=== PATIENT | female | born 1960 ===

== ENCOUNTER 2023-05-03 16:09 | Outpatient (REF) | payer BC, SELFPAY ==
[2023-05-03 14:44] LABS: HCT 50.6 % (36.0-46.0); HGB 17.2 g/dL (11.2-15.7); MCV 91 fL (80-95); MPV 9.5 fL (8.0-11.0); Platelet Count 286 10^3/uL (130-400); RBC 5.54 10^6/uL (3.93-5.22); RDW 14.5 % (11.7-14.6); RDW-SD 49.2 fL; WBC 10.45 10^3/uL (4.4-10.8)
[2023-05-03 15:08] LABS: ALT 48 U/L (14-59); AST 30 U/L (15-37); Alkaline Phosphatase 206 U/L (46-116); Anion Gap 5.5 mmol/L (3-11); BUN 27 mg/dL (7-18); Bilirubin, Total 0.5 mg/dL (0.2-1.0); CO2 33.5 mmol/L (21.0-32.0); CREATININE 0.9 mg/dL (0.55-1.02); Calcium 9.9 mg/dL (8.5-10.1); Calculated LDL 110 mg/dL (<100); Chloride 98 mmol/L (98-107); Cholesterol 212 mg/dL (<200); Estimated GFR 73.19 (mL/min/1.73m2); Glucose 115 mg/dL (74-106); HDL Cholesterol 53 mg/dL (40-60); Potassium 3.6 mmol/L (3.5-5.1); Sodium 137 mmol/L (136-145); TSH 1.74 uIU/mL (0.36-3.74); Total Protein 8.4 g/dL (6.4-8.2); Triglyceride 246 mg/dL (<150)
== END 2023-05-03 16:10 | disposition home or self-care (01) ==
LOC: NCHCN 16:09
PROVIDERS: Visit Provider Family Medicine
DX: Z00.00 Encounter for general adult medical examination without abnormal findings (principal); E78.00 Pure hypercholesterolemia, unspecified; I11.9 Hypertensive heart disease without heart failure; K76.0 Fatty (change of) liver, not elsewhere classified; E66.8 Other obesity; Z68.32 Body mass index [BMI] 32.0-32.9, adult
CPT/HCPCS: 80053; 80061; 85027; 84443

== ENCOUNTER 2024-04-18 18:41 | Outpatient (REF) | payer BC, SELFPAY ==
--- OUTSIDE RECORDS SUMMARY | 2024-04-18 18:43 | XMS_ITS | Data Portability ---
Author Organization [facility], [facility] Address [address] [place] [address] Assessment Encounter Date Assessment Date Assessment LastModified by Organization Details LastModified Time 08/30/2023 08/30/2023 The total time devoted to today's encounter, including both the dbhu-hm-qcrg time with the patient and/or family/caregi jorge and sxt-vsge-dt-f kajal time I personally spent is 30 minutes. [email or web address] Not available 08/30/2023 21:17:13 11/22/2023 11/22/2023 The total time devoted to today's encounter, including both the xody-ui-yzjo time with the patient and/or family/caregi jorge and zfq-cfyk-ec-f kajal time I personally spent is 30 minutes. [email or web address] Not available 11/22/2023 11:32:30 04/18/2024 04/18/2024 The total time devoted to today's encounter, including both the dchv-we-tntk time with the patient and/or family/caregi jorge and gvn-odhr-bd-f kajal time I personally spent is 25 minutes in visit, 5 minutes prep, 5 minutes charting; total 35 minutes. Not available 04/18/2024 14:43:39 Plan of Treatment Reminders Order Date Submit Date Provider Last Modified By Organization Details Last Modified Time Details Appointments Follow Up 2023 02:00P M Not available Not available Not available acureset 2023 11:00A M Not available Not available Not available 12 week FU (controll ed meds) 2023 02:00P M Not available Not available Not available Lab hemoglobi n A1C, fingersti ck [email or web address], [address] [place] [address], [id number], 08/30/2023 15:01:34 hemoglobi n A1C, fingersti ck [email or web address], [address] [place] [address], [phone], 11/22/2023 13:13:01 lipid panel, serum [address] [facility] (Registration ), [address] [place] [address] [place], [address], 04/18/2024 16:33:42 drug screen, urine [email or web address], [address] [place] [address], [phone], 04/18/2024 16:33:42 HbA1c (hemoglob in A1c), blood [address] [facility] (Registration ), [address] [place] [address] [place], [address], 04/18/2024 16:33:42 CMP, serum or plasma [address] [facility] (Registration ), [address] [place] [address] [place], [address], 04/18/2024 16:33:42 Referral urologist referral [address] [facility], [address], [address], [place], [address], 04/18/2024 16:32:45 Procedures None recorded. Surgeries None recorded. Imaging LDCT, chest, for lung cancer screening - 6 month F/U LDCT (last imaging done on 03/24/23) 2023 024 [email or web address] [facility], [address], [place], [address], 09/15/2023 09:34:03 Medication Orders dextroamp hetamine- amphetami ne 20 mg tablet 2023 024 [facility] #[id number], [address], [place], [place], [id number], 08/30/2023 21:18:01 dextroamp hetamine- amphetami ne 20 mg tablet 2023 024 [facility] #[id number], [address], [place], [place], [id number], 08/30/2023 21:18:00 dextroamp hetamine- amphetami ne 20 mg tablet 2023 024 [facility] #[id number], [address], [place], [place], [id number], 08/30/2023 21:18:01 atorvasta tin 80 mg tablet 2023 024 [email or web address] [facility] [facility] (Primary), [facility], [place], [address], 11/22/2023 15:47:51 dextroamp hetamine- amphetami ne 20 mg tablet [address] [facility] #[id number], [address], [place], [place], [id number], 11/22/2023 13:29:37 dextroamp hetamine- amphetami ne 20 mg tablet [address] [facility] #[id number], [address], [place], [place], [id number], 11/22/2023 13:29:38 dextroamp hetamine- amphetami ne 20 mg tablet 2023 [facility] #[id number], [address], [place], [place], [id number], 11/22/2023 11:35:31 amlodipin e 10 mg tablet 2023 024 [email or web address] [employer] [facility] (Primary), [place], [address], 11/22/2023 15:47:51 triamtere ne 75 mg-hydroc hlorothia zide 50 mg tablet 2023 [email or web address] [employer] [facility] (Primary), [place], [address], 11/22/2023 15:47:51 omeprazol e 20 mg capsule,d elayed release 2023 024 [email or web address] [employer] (Primary), [place], [address], 11/22/2023 15:47:51 Vyvanse 20 mg capsule 2023 [email or web address] [employer] (Primary), [place], [address], 04/18/2024 16:32:45 omeprazol e 20 mg capsule,d elayed release 2023 024 [email or web address] [facility] (Primary), [place], [address], 04/18/2024 16:32:45 nicotine 21 mg/24 hr daily transderm al patch 2023 [email or web address] [employer] (Primary), [place], [address], 04/18/2024 16:32:45 Patient TargetsNo targets recorded. Patient Instructions Encounter Date Encounter Id Patient Instructions Last Modified By Organization Details Last Modified Time 11/22/2023 [id number] It was nice to see you! I recommend getting 30+ mins of exercise most days, maximizing fruit and vegetable intake, eating healthy fats, and limiting carbohydrates, especially simple carbs (soda, pasta, bread, cookies, cereals). Consider support groups along with Accu reset for smoking cessation. Follow-up in 3 months or sooner if needed. Take Care! [email or web address] Not available 11/22/2023 11:36:01 Reason for Referral Urologist Referral for Urina ry incontinence Referring Physician: Floyd Aj, Family Medicine, Encounter Date: 04/18/2024 Results Created Date Observation Date Name Description Value Unit Range Abnormal Flag Note LastModifiedBy Organization Detail LastModifiedTime 08/30/19 24 08/30/2023 hemog lobin A1C, finge rstic k HGBA1C 6.1 % <5.7 Not Available [address], [address], 08/30/2023 10:27:56 11/22/19 24 11/22/2023 hemog lobin A1C, finge rstic k hemoglobin A1C 5.9 % <5.7 Not Available [address], [address], 11/22/2023 11:11:30 04/18/20 24 04/18/2024 drug scree n, urine Amphetamines : positi ve Not Available [address], [address], 04/18/2024 14:19:56 04/18/20 24 04/18/2024 drug scree n, urine Barbiturates : negati ve Not Available [address], [address], 04/18/2024 14:19:56 04/18/20 24 04/18/2024 drug scree n, urine BUP: negati ve Not Available [address], [address], 04/18/2024 14:19:56 04/18/20 24 04/18/2024 drug scree n, urine Benzodiazepi wil: negati ve Not Available [address], [address], 04/18/2024 14:19:56 04/18/20 24 04/18/2024 drug scree n, urine Cocaine: negati ve Not Available [address], [address], 04/18/2024 14:19:56 04/18/20 24 04/18/2024 drug scree n, urine EDDP (Methadone Metabolite) negati ve Not Available [address], [address], 04/18/2024 14:19:56 04/18/20 24 04/18/2024 drug scree n, urine (MET) Methamphetam ine: negati ve Not Available [address], [address], 04/18/2024 14:19:56 04/18/20 24 04/18/2024 drug scree n, urine MDMA: negati ve Not Available [address], [address], 04/18/2024 14:19:56 04/18/20 24 04/18/2024 drug scree n, urine MTD (Methadone): negati ve Not Available [address], [address], 04/18/2024 14:19:56 04/18/20 24 04/18/2024 drug scree n, urine [id number] (Opiate): negati ve Not Available [address], [address], 04/18/2024 14:19:56 04/18/20 24 04/18/2024 drug scree n, urine OXY (Oxycodone): negati ve Not Available [address], [address], 04/18/2024 14:19:56 04/18/20 24 04/18/2024 drug scree n, urine TCA: negati ve Not Available [address], [address], 04/18/2024 14:19:56 04/18/20 24 04/18/2024 drug scree n, urine THC: negati ve Not Available [address], [address], 04/18/2024 14:19:56 01/19/20 24 01/18/2024 LDCT, chest , for lung cance r scree [email or web address] No observ ation record ed. [email or web address] [facility] [address], [place], [address], 02/08/2024 13:31:45 Result Notes None recorded. Problems Name Problem SNOMED Code Status Onset Date Resolution Date Notes Provider Name and Address Organization Details Recorded Time Nicotine dependenc e 26126188 Active 2022 Celine talley [place] - [facility]. 10:57:08 Obstructi ve sleep apnea syndrome 20048757 Active 2022 Celineher Mercedes [facility], [facility] 10:57:15 Pure hyperchol esterolem ia 051941008 Active 2022 [facility] 10:57:18 Dyspnea 587296616 Active 2022 [facility] 10:56:38 Carpal tunnel syndrome of left wrist 182744210615 102 Active 2022 [facility] 10:56:23 Simple obesity 981127246 Active 2022 [facility] 10:57:29 Body mass index 30+ - obesity 758239023 Active 2022 [facility] 10:56:19 Finger clubbing 62115230 Active 2022 [facility] 10:56:45 Hypertens latha heart disease without congestiv e heart failure 92741360 Active 2022 [facility] 10:56:57 Chronic obstructi ve pulmonary disease 71194222 Active 2022 [facility] 10:56:30 Chronic gastritis 1751216 Active 2022 [facility] 10:56:27 Family history of polyp of colon 129119332 Active 2022 [facility] 10:56:41 Attention deficit hyperacti vity disorder, combined type 89224604 Active 2022 [facility] 4 10:56:14 Menopause present 507202431 Active 2022 Celine Mercedes [facility] 4 10:57:04 Hypertrop hic condition of skin 93043630 Active 2022 Celine Mercedes [facility] 4 10:57:01 Furuncle of groin 59186022 Active 2022 Celine regine [facility] 4 10:56:49 Steatosis of liver 010298235 Active 2022 [facility] 10:57:45 Screening for malignant neoplasm of breast Active 2022 [facility] 10:57:22 Screening for malignant neoplasm of colon [facility] 10:57:25 Urinary incontine nce 223735988 Active 2022 [facility] 4 10:57:50 Sleep apnea 03380836 Active 2022 Celine Mercedes [facility] 4 10:57:34 Adult health examinati on Active 2022 Celine Mercedes [facility]. 4 10:56:10 [facility] emia 91390455 Active 2022 [facility] 10:56:52 Nodule of lung 427259164 Active 2023 Celine Mercedes [facility], [facility] 4 10:57:11 Skin tag 569156156 Active 2022 [facility], [facility] 10:58:30 Prediabet es 394023853 Active 2023 FLOYD AJ, LEARNING AND DEVELOPMENT ANALYST [address], [place], [address] , [facility]. 11:35:25 Problem Notes None recorded. Procedures Surgical History None recorded. Imaging Results Imaging Date Name Status LastModified by Organiz ation Details LastModified Time 01/18/2024 LDCT, chest, for lung cancer screening completed [email or web address] [facility] [address], [place], [address], 02/08/2024 13:31:45 Procedure Notes None recorded. Medical Equipment None Reported. Allergies No known drug allergies Medications Name Sig Start Date Stop Date Status Note LastModified by Organization Details LastModified Time multivitami n tablet Take 1 tablet by mouth once a day active Not Available Not Available No t Available atorvastati n 80 mg tablet Take 1 tablet every day by oral route. 2023 active Not Available Not Available Not Avai lable amoxicillin 500 mg tablet TAKE 1 TABLET BY MOUTH THREE TIMES DAILY UNTIL GONE 04/18 completed Not Available Not Available Not Available amlodipine 10 mg tablet Take 1 tablet every day by oral route. 2023 active Not Available Not Available Not Avai lable dextroamphe tamine-amph etamine 20 mg tablet TAKE 1 TABLET BY MOUTH THREE TIMES DAILY active Not Available Not Available No t Available nicotine 21 mg/24 hr daily transdermal patch Apply 1 patch every day by transderm al route. 2023 active Not Available Not Available Not Avai lable omeprazole 20 mg capsule,del ayed release Take 1 capsule every day by oral route. 2023 active Not Available Not Available Not Avai lable triamterene 75 mg-hydrochl orothiazide 50 mg tablet Take 1 tablet every day by oral route. 2023 active Not Available Not Available Not Avai lable diazepam 10 mg tablet TAKE 1 TABLET BY MOUTH 30 MINS PRIOR TO SURGERY active Not Available Not Available No t Available Adult Low Dose Aspirin 81 mg tablet,prasanth yed release Take 1 tablet by mouth once a day active Not Available Not Available No t Available chlorhexidi ne gluconate 0.12 % mouthwash RINSE TWICE DAILY WITH 1/2 OZ AFTER BREAKFAST AND BEFORE BEDTIME active Not Available Not Available No t Available varenicline 0.5 mg (11)-1 mg (42) tablets in a dose pack by mouth as directed 08/30 completed Not Available Not Available Not Available Vyvanse 20 mg capsule Take 1 capsule every day by oral route. 2023 active Not Available Not Available Not Avai lable Paxlovid 300 mg (150 mg x 2)-100 mg tablets in a dose pack Take 3 tablets twice a day. Do not take Atorvasta tin for 10 days, do not take Adderall for 7 days 08/30 completed Not Available Not Available Not Available Vitals Date Recorded Body height Body mass index (BMI) Body weight Oxygen saturation Oxygen saturation in Arterial blood by Pulse oximetry Heart rate Body temperature Systolic blood pressure Diastolic blood pressure Provider Name and Address Organization Details Last Updated DateTime 4 162.56 cm 29.5 kg/m2 16397.8 9 g 95 % 95 % 94 /min 98 [degF] 140 mm[Hg] 72 mm[Hg] DOUGIE BRYANT MA [facility] 4 10:04:10 Date Recorded Body height Body mass index (BMI) Body weight Body temperature Oxygen saturation Oxygen saturation in Arterial blood by Pulse oximetry Heart rate Systolic blood pressure Diastolic blood pressure Provider Name and Address Organization Details Last Updated DateTime 4 162.56 cm 31.2 kg/m2 58462.8 1 g 98 [degF] 97 % 97 % 88 /min 126 mm[Hg] 78 mm[Hg] SUSHMA LARA RN [facility] 4 11:03:39 Date Recorded Body height Oxygen saturation Oxygen saturation in Arterial blood by Pulse oximetry Heart rate Body temperature Body mass index (BMI) Body weight Systolic blood pressure Diastolic blood pressure Provider Name and Address Organization Details Last Updated DateTime 4 162.56 cm 96 % 96 % 85 /min 98 [degF] 30.6 kg/m2 18694.4 4 g 138 mm[Hg] 86 mm[Hg] MAXI MARMOLEJO RN [facility] 4 14:07:27 Social History None recorded. Functional Status None recorded. Mental Status None recorded. Family History Nothing Reported Notes:*Problem: Mother: dece ased,HTN, HLD, CAD w/ stent placement, aneurysm Father: -lung cancer, HLD, HTN, CAD MGM: MGF: PGF: PGM: -breast cancer 3 Brothers: high cholesterol Brother: MO w/ stent placement 2 Sisters: high cholesterol, triple bypass age68, lung cancer 2 Sons: oldest dx w/ achondroplasia, youngest healthy Medical History No medical history recorded. Gynecological HistoryNo gynecological history recorded. Obstetrics History GPAL:G 0 P 0 0 0 0 Immunizations Vaccine Type Date Status Provider Name and Address Organization Details Recorded Time Tdap 02/09/2023 completed Not Available [facility] 05:56:40 zoster, unspecified formulation 08/09/2022 completed Not Available [facility] 06/17/2023 05:56:41 zoster, unspecified formulation 06/15/2022 completed Not Available [facility] 06/17/2023 05:56:41 COVID-19, mRNA, LNP-S, PF, 100 mcg/0.5mL dose or 50 mcg/0.25mL dose 05/31/2022 completed Not Available [facility] 06/17/20 05:56:41 COVID-19, mRNA, LNP-S, PF, 30 mcg/0.3 mL dose 10/08/2020 completed Not Available [facility] 06/17/2023 05:56:41 COVID-19, mRNA, LNP-S, PF, 30 mcg/0.3 mL dose 10/29/2020 completed Not Available [facility] 06/17/2023 05:56:41 COVID-19, mRNA, LNP-S, PF, 30 mcg/0.3 mL dose 05/30/2021 completed Not Available [facility] 06/17/2023 05:56:41 influenza, unspecified formulation 06/02/2022 completed Not Available [facility] 06/17/2023 05:56:43 Influenza, split virus, quadrivalent, PF 05/25/2023 completed Not Available [facility] 08/19/2023 05:32:02 Past Encounters Encounter ID Performer Location Encounter Start Date Encounter Closed Date Diagnosis/Indication Diagnosis SNOMED-CT Code Diagnosis ICD10 Code [id number] [address] [address] 08/30/2023 09:45:06 08/30/2023 10:59:00 Attention deficit hyperactivity disorder, combined type 42102992 F90.2 Nodule of lung 291160157 R91.1 Body mass index 30+ - obesity 873227237 Z68.32 Nicotine dependence 5629 4008 F17.200 Hypertensi ve heart disease without congestive heart failure 42908130 I11.[id number] [address] 11/22/2023 10:47:46 11/22/2023 11:25:50 Prediabetes 665800804 R73.03 Nodule of lung 403570209 R91.1 Attention deficit hyperactivity disorder, combined type 72812887 F90.2 Body mass index 30+ - obesity 058799762 Z68.32 Nicotine dependence 5629 4008 F17.200 Hypertensi ve heart disease without congestive heart failure 52646368 I11.9 Pure hypercholesterolemia 765337063 E78.00 Chronic gastritis 071738 9 K29.[id number] [address] 04/18/2024 13:43:57 04/18/2024 14:36:30 Smoker 05848659 F17.200 Prediabetes 663471790 R7 3.03 Nodule of lung 844677679 R91.1 Attention deficit hyperactivity disorder, combined type 37123629 F90.2 Body mass index 30+ - obesity 908604439 Z68.32 Nicotine dependence 5629 4008 F17.200 Hypertensi ve heart disease without congestive heart failure 81708756 I11.9 Pure hypercholesterolemia 650661046 E78.00 Chronic gastritis 635662 9 K29.50 Urinary incontinence 165 503644 R32 Health Concerns Section Related Observation LastModified by Organization Detai ls LastModified Time None Recorded Concern Status LastModified by Organization Details LastModified Time None Recorded Advance Directives Directive None Recorded Payers Encounter Date Sequence Insurance Name Policy Number Policy Tate Covered Member ID Tate Member ID Guarantor Name 08/30/2023 1 [place] [facility] ([place] [id number] Haily L Spring [id number] [address] spring11/22/2023 1 [place] [facility] [place] [id number] Haily L Spring [id number] Haily L spring04/18/2024 1 [place] [id number] Haily L Spring [id number] Haily L Spring Notes Date Note Type Note Provider Name and Address Organization Details Recorded Time 08/30/2023 text/html HPI Notes: Last seen in office 05/25/23 for HME. had a pacemaker this past summer and now dealiing with an infection at the site and she has been helping him with his care. They both had covid around the holidays. RTC today to f/u the following items: Nicotine use? has been tobacco free for 6 days. Using the patch. Feels like she is struggling. Lung nodule? recent LDCT showing a left upper node part solid 6 mm nodule with a 1 mm solid component. Atelectasis and scarring is present. Recommend follow-up in 3 to 6 months. Needs referral. HTN? has been continue with current medication regimen. Denies any headache, dizziness or visual changes. Has not been routinely monitoring her blood pressure at home. Prediabetes/obesity? A1c 05/25/24 6.0%. Repeat today in office of 6.1%. Urinary incontinence? Has started Pelvic floor PT. Not sure if it is going to help or not. Colon polyps? colonoscopy July 04 of this year at [facility] with 1 polyp removed. Repeat in 5 years. ADD? discussed proper use and potential SE of her Adderall. She feels she gets good from current dose of Adderall 20 mg 3 times a day. She does report not always taking it. Now that she is retired, she feels it may not be necessary every single day. FLOYD AJ, DAYANNA [address], [place], [address], [facility]. 08/30/2023 21:17:57 11/22/2023 text/html HPI Notes: 63-year-old female comes to clinic today for follow-up on hypertension, ADHD, tobacco. She reports she quit smoking on August 26 of this year. Her also quit around the same time. She is using nicotine patches. Still having some cravings. She has noticed a 15 pound again gain since quitting smoking. She also reports not being as active this winter due to some health concerns her in regards to a pacemaker incision did not heal well. He was hospitalized and treated with IV ABX followed by 6 weeks of antibiotics via PICC line at home. Continues to take a stimulant medication for ADHD. She is looking forward to summer and being more active outside. HTN - has been monitoring it at home, well-controlled. She denies any chills, fever, chest pain, shortness of breath, N/V/D. DAYANNA DE LA O [address], [place], [address], [facility]. 11/22/2023 14:18:34 04/18/2024 text/html HPI Notes: 63-year-old female patient presents to clinic today for follow-up on ADHD, hypertension and smoking # Nicotine dependence? reports smoking half a pack of cigarettes per week. She has tried using nicotine patches but finds them too expensive. She is willing to call the [facility] Quitline for free patches. #HTN and ADHD- blood pressure is elevated, which she attributes to recent dental extractions. She is currently taking methylphenidate for ADHD. We have discussed concerns about the increased cardiovascular risks associated with its use in patients over 60. She is willing to try Vyvanse as a safer alternative. # urinary incontinence, which has not significantly improved after several sessions of physical therapy. She is considering seeing a urologist for possible surgical intervention. Pt denies experiencing shortness of breath, chest pain, fever, chills, or recent illnesses. She reports occasional difficulty with bowel movements but no significant issues. DAYANNA DE [address], [place], [address], [facility]. 04/18/2024 16:32:51 OBGyn Episode No OBEpisode recorded.
--- OUTSIDE RECORDS SUMMARY | 2024-04-18 18:43 | XMS_ITS | Continuity of Care Document ---
Author Organization [facility], [facility] Address [address] [place] [address] Assessment Encounter Date Assessment Date Assessment LastModified by Organization Details LastModified Time 04/18/2024 04/18/2024 The total time devoted to today's encounter, including both the gzxu-gp-kbhb time with the patient and/or family/caregi jorge and bck-vzpz-vh-f kajal time I personally spent is 25 minutes in visit, 5 minutes prep, 5 minutes charting; total 35 minutes. [email or web address] Not available 04/18/2024 14:43:39 Plan of Treatment Reminders Order Date Submit Date Provider Last Modified By Organization Details Last Modified Time Details Appointments Follow Up 30 2023 02:00P M Not available Not available Not available acureset 2023 11:00A M Not available Not available Not available 12 week FU (controll ed meds) 2023 02:00P M Not available Not available Not available Lab lipid panel, serum 2023 024 [email or web address] [facility] (Registration ), [address] [place] [address] [place], [address], 04/18/2024 16:33:42 drug screen, urine 2023 024 [email or web address] [facility], [address] [facility], [place], [address], 04/18/2024 16:33:42 HbA1c (hemoglob in A1c), blood 2023 024 [email or web address] [facility] (Registration ), [address] [place] [address] [place], [address], 04/18/2024 16:33:42 CMP, serum or plasma 2023 024 [email or web address] [facility] (Registration ), [address] [place] [address] [place], [address], 04/18/2024 16:33:42 Referral urologist referral 2023 024 [email or web address] [facility], [address], [address], [place], [address], 04/18/2024 16:32:45 Procedures None recorded. Surgeries None recorded. Imaging None recorded. Medication Orders Vyvanse 20 mg capsule 2023 024 [id number] [employer] (Primary), [facility] [place], [address], 04/18/2024 16:32:45 omeprazol e 20 mg capsule,d elayed release 2023 024 [employer] (Primary), [facility] [place], [address], 04/18/2024 16:32:45 nicotine 21 mg/24 hr daily transderm al patch 2023 024 [email or web address] (Primary), [place], [address], 04/18/2024 16:32:45 Patient TargetsNo targets recorded. Patient InstructionsNo instructions recorded. Reason for Referral Urologist Referral for Urina ry incontinence Referring Physician: Floyd Aj, Family Medicine, Encounter Date: 04/18/2024 Results Created Date Observation Date Name Description Value Unit Range Abnormal Flag Note LastModifiedBy Organization Detail LastModifiedTime 04/18/20 24 04/18/2024 drug scree n, urine Amphetamines : positi ve Not Available [facility] [address], [place], [address], 04/18/2024 14:19:56 04/18/20 24 04/18/2024 drug scree n, urine Barbiturates : negati ve Not Available [address], [address], 04/18/2024 14:19:56 04/18/20 24 04/18/2024 drug scree n, urine BUP: negati ve Not Available [address], [address], 04/18/2024 14:19:56 04/18/20 24 04/18/2024 drug scree n, urine Benzodiazepi wil: negati ve Not Available [address], [address], 04/18/2024 14:19:56 04/18/20 24 04/18/2024 drug scree n, urine Cocaine: negati ve Not Available [address], [address], 04/18/2024 14:19:56 04/18/20 24 04/18/2024 drug scree n, urine EDDP (Methadone Metabolite) negati ve Not Available [address], [address], 04/18/2024 14:19:56 04/18/20 24 04/18/2024 drug scree n, urine (MET) Methamphetam ine: negati ve Not Available [address], [address], 04/18/2024 14:19:56 04/18/20 24 04/18/2024 drug scree n, urine MDMA: negati ve Not Available [address], [address], 04/18/2024 14:19:56 04/18/20 24 04/18/2024 drug scree n, urine MTD (Methadone): negati ve Not Available [address], [address], 04/18/2024 14:19:56 04/18/20 24 04/18/2024 drug scree n, urine [id number] (Opiate): negati ve Not Available [address], [address], 04/18/2024 14:19:56 04/18/20 24 04/18/2024 drug scree n, urine OXY (Oxycodone): negati ve Not Available [address], [address], 04/18/2024 14:19:56 04/18/20 24 04/18/2024 drug scree n, urine TCA: negati ve Not Available [address], [address], 04/18/2024 14:19:56 04/18/20 24 04/18/2024 drug scree n, urine THC: negati ve Not Available [address], [address], 04/18/2024 14:19:56 Result Notes None recorded. Problems Name Problem SNOMED Code Status Onset Date Resolution Date Notes Provider Name and Address Organization Details Recorded Time Nicotine dependenc e 56595714 Active 2022 Celine talley [place] - [facility]. 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 47840775 Active 2022 [facility] 10:56:57 Chronic obstructi ve pulmonary disease 11321861 Active 2022 [facility] 10:56:30 Chronic gastritis 7751951 Active 2022 [facility] 10:56:27 Family history of polyp of colon 345516888 Active 2022 [facility] 10:56:41 Attention deficit hyperacti vity disorder, combined type 75580571 Active 2022 Celine talley, [facility] 10:56:14 Menopause present 455240039 [facility] 10:57:04 Hypertrop hic condition of skin 64023811 Active 2022 Celine Mercedes [facility] 10:57:01 Furuncle of groin 85652657 Active 2022 Celine Mercedes [facility] 10:56:49 Steatosis of liver 908352222 Active 2022 Celine Seroxana [facility] 10:57:45 Screening for malignant neoplasm of breast [facility]22 [facility] 10:57:22 Screening for malignant neoplasm of colon Active 2022 Celine Mercedes [facility] 10:57:25 Urinary incontine nce 519181749 Active 2022 Celine Mercedes [facility] 4 10:57:50 Sleep apnea 28289471 [facility] 10:57:34 Adult health examinati on Active 2022 [facility] 4 10:56:10 [facility] emia 50579802 Active 2022 [facility] 10:56:52 Nodule of lung 417991227 Active 2023 [facility] 10:57:11 Skin tag 569216203 Active 2022 Perineum Celine Mercedes null, [facility] 4 10:58:30 Prediabet es 068106919 Active 2023 FLOYD AJ, DAYANNA [address], [place], [address] [place] [address] 4 11:35:25 Problem Notes None recorded. Medical Equipment None Reported. [...] Not Available Vitals Date Recorded Body height Oxygen saturation Oxygen saturation in Arterial blood by Pulse oximetry Heart rate Body temperature Body mass index (BMI) Body weight Systolic blood pressure Diastolic blood pressure Provider Name and Address Organization Details Last Updated DateTime 4 162.56 cm 96 % 96 % 85 /min 98 [degF] 30.6 kg/m2 12962.4 4 g 138 mm[Hg] 86 mm[Hg] MAXI MARMOLEJO RN [place] - [facility] 14:07:27 Social History None recorded. Functional Status None recorded. Mental Status None recorded. Family History Nothing Reported Notes:*Problem: Mother: dece ased,HTN, HLD, CAD w/ stent placement, aneurysm Father: -lung cancer, HLD, HTN, CAD MGM: MGF: PGF: PGM: -breast cancer 3 Brothers: high cholesterol Brother: GA w/ stent placement 2 Sisters: high cholesterol, triple bypass age68, lung cancer 2 Sons: oldest dx w/ achondroplasia, youngest healthy Medical History No medical history recorded. Gynecological HistoryNo gynecological history recorded. Obstetrics History GPAL:G 0 P 0 0 0 0 Immunizations Vaccine Type Date Status Provider Name and Address Organization Details Recorded Time Tdap 02/09/2023 completed Not Available [facility] 05:56:40 zoster, unspecified formulation 08/09/2022 completed Not Available [facility] 06/17/2023 05:56:41 zoster, unspecified formulation 06/15/2022 completed Not Available [facility] 06/17/2023 05:56:41 COVID-19, mRNA, LNP-S, PF, 100 mcg/0.5mL dose or 50 mcg/0.25mL dose 05/31/2022 completed Not Available [facility] 06/17/20 05:56:41 COVID-19, mRNA, LNP-S, PF, 30 mcg/0.3 mL dose 10/08/2020 completed Not Available [facility] 06/17/2023 05:56:41 COVID-19, mRNA, LNP-S, PF, 30 mcg/0.3 mL dose 10/29/2020 completed Not Available [facility] 06/17/2023 05:56:41 COVID-19, mRNA, LNP-S, PF, 30 mcg/0.3 mL dose 05/30/2021 completed Not Available [facility] 06/17/2023 05:56:41 influenza, unspecified formulation 06/02/2022 completed Not Available [facility] 06/17/2023 05:56:43 Influenza, split virus, quadrivalent, PF 05/25/2023 completed Not Available [facility] 08/19/2023 05:32:02 Past Encounters Encounter ID Performer Location Encounter Start Date Encounter Closed Date Diagnosis/Indication Diagnosis SNOMED-CT Code Diagnosis ICD10 Code [id number] FLOYD AJ [address] [address] 04/18/2024 13:43:57 04/18/2024 14:36:30 Smoker 25373709 F17.200 Prediabetes 868741854 R7 3.03 Nodule of lung 945115342 R91.1 Attention deficit hyperactivity disorder, combined type 74606323 F90.2 Body mass index 30+ - obesity 471332312 Z68.32 Nicotine dependence 5629 4008 F17.200 Hypertensi ve heart disease without congestive heart failure 92766737 I11.9 Pure hypercholesterolemia 667789139 E78.00 Chronic gastritis 380658 9 K29.50 Urinary incontinence 165 047310 R32 Health Concerns Section Related Observation LastModified by Organization Detai ls LastModified Time None Recorded Concern Status LastModified by Organization Details LastModified Time None Recorded Payers Encounter Date Sequence Insurance Name Policy Number Policy Tate Covered Member ID Tate Member ID Guarantor Name 04/18/2024 1 [place] [facility] [id number] spring [id number] spring Notes Date Note Type Note Provider Name and Address Organization Details Recorded Time 04/18/2024 text/html HPI Notes: 63-year-old female patient presents to clinic today for follow-up on ADHD, hypertension and smoking # Nicotine dependence? reports smoking half a pack of cigarettes per week. She has tried using nicotine patches but finds them too expensive. She is willing to call the [facility] Quitline for free patches. #HTN and [...] with bowel movements but no significant issues. FLOYD AJ, [employer] [address], [place], [address], [facility]. 04/18/2024 16:32:51 OBGyn Episode No OBEpisode recorded.
--- OUTSIDE RECORDS SUMMARY | 2024-04-18 18:44 | XMS_ITS ---
Author Organization Unknown Address [address] [place] [address] [phone] Phone Care Team Providers Care Drier Operator Head Name Role Phone AUSTIN FLOYD Attending Unavailable Social History Type Status Start Date End Date Code Code Syst em Sex Female Hospital Discharge Instructions Should you have any questions prior to discharge, please contact a member of your healthcare team. If you have left the hospital and have any questions, please contact your primary care physician. Reason For Referral No Data Found Plan of Treatment No Data Found Encounters Encounter Diagnosis Start Date Code Code Sys tem Mixed incontinence 07/14/2023 SNOMED-CT Personal Care Team Section Performer Name Performer Role Active Date Inactive Da thang
[2024-04-18 21:14] LABS: Hemoglobin A1C 5.8 % (<5.7)
[2024-04-18 21:19] LABS: ALT 45 U/L (14-59); AST 25 U/L (15-37); Alkaline Phosphatase 189 U/L (46-116); Anion Gap 4.4 mmol/L (3-11); BUN 15 mg/dL (7-18); Bilirubin, Total 0.82 mg/dL (0.2-1.0); CO2 32.6 mmol/L (21.0-32.0); CREATININE 0.9 mg/dL (0.55-1.02); Calcium 9.4 mg/dL (8.5-10.1); Calculated LDL 115 mg/dL (<100); Chloride 108 mmol/L (98-107); Cholesterol 212 mg/dL (<200); Estimated GFR 72.73 (mL/min/1.73m2); Glucose 91 mg/dL (74-106); HDL Cholesterol 54 mg/dL (40-60); Potassium 4.4 mmol/L (3.5-5.1); Sodium 145 mmol/L (136-145); Total Protein 7.9 g/dL (6.4-8.2); Triglyceride 218 mg/dL (<150)
== END 2024-04-18 18:42 | disposition home or self-care (01) ==
LOC: NCHCN 18:41
PROVIDERS: Visit Provider Family Medicine
DX: R73.03 Prediabetes (principal); E78.00 Pure hypercholesterolemia, unspecified; E66.8 Other obesity; Z68.32 Body mass index [BMI] 32.0-32.9, adult
CPT/HCPCS: 80053; 80061; 83036

== ENCOUNTER 2024-11-14 12:35 | Outpatient (REF) | payer BC, SELFPAY ==
--- NOTE | 2024-11-14 09:10 | PAPFT_PTH ---
PATIENT: Haily Landis [facility] U#:[id number] AGE/SX: 64/F ROOM: RE11/14/[address]: DAVID: 1960 BED: DIS: 11/14/2024 SPEC #: [id number] RECD: 11/14/24 17:59 STATUS: YVONNE KENDRA #: [id number] CASIMIRO: 11/14/24 09:[address]: Valencia Aj DEPT: [facility] Cytology RECD BY: Candi Whitfield ENTERED: 11/14/24 17:59 SP TYPE: PAPFT KARTIK DR: Unknown,Unknown Tissues: 1 - CX/ENDOCX FOR PAP SMEARS Procedures: PAP THIN PREP/[facility] Screening HPV DNA PROBE Comments: [id number] (HPV 16 & 18/45)
[2024-11-14 14:29] LABS: HCT 52.1 % (36.0-46.0); HGB 17.3 g/dL (11.2-15.7); MCH 30.6 pg (27.0-33.0); MCHC 33.2 % (32.0-36.0); MCV 92 fL (80-95); MPV 10.2 fL (8.0-11.0); Platelet Count 229 10^3/uL (130-400); RBC 5.66 10^6/uL (3.93-5.22); RDW 14.3 % (11.7-14.6); RDW-SD 48.8 fL; WBC 7.35 10^3/uL (4.4-10.8)
[2024-11-14 15:37] LABS: Hemoglobin A1C 5.9 % (<5.7)
[2024-11-14 16:59] LABS: ALT 59 U/L (14-59); AST 28 U/L (15-37); Albumin 4.2 g/dL (3.4-5.0); Alkaline Phosphatase 208 U/L (46-116); Anion Gap 12.5 mmol/L (3-11); BUN 20 mg/dL (7-18); Bilirubin, Total 0.6 mg/dL (0.2-1.0); CO2 29.5 mmol/L (21.0-32.0); CREATININE 0.9 mg/dL (0.55-1.02); Calcium 9.8 mg/dL (8.5-10.1); Calculated LDL 82 mg/dL (<100); Chloride 105 mmol/L (98-107); Cholesterol 186 mg/dL (<200); Estimated GFR 72.28 (mL/min/1.73m2); Glucose 94 mg/dL (74-106); HDL Cholesterol 58 mg/dL (>or=50); Sodium 147 mmol/L (136-145); TSH (W/Ref FT4) 1.74 uIU/mL (0.36-3.74); Triglyceride 234 mg/dL (<150)
[2024-11-14 19:57] LABS: Vitamin D 25 Total 27 ng/mL (30-100)
== END 2024-11-14 12:36 | disposition home or self-care (01) ==
LOC: NCHCN 12:35
PROVIDERS: Visit Provider Family Medicine
DX: Z11.51 Encounter for screening for human papillomavirus (HPV) (principal); Z01.419 Encounter for gynecological examination (general) (routine) without abnormal findings; I11.9 Hypertensive heart disease without heart failure; E78.00 Pure hypercholesterolemia, unspecified; R53.83 Other fatigue; E55.9 Vitamin D deficiency, unspecified
CPT/HCPCS: 80053; 80061; 82306; 85027; 88142; 83036; 84443; 87624

== ENCOUNTER 2025-04-25 13:26 | Outpatient (REF) | payer BC, SELFPAY ==
[2025-04-25 20:23] LABS: Abs Immature Grans 0.02 10^3/uL (0.0-0.06); HCT 48.5 % (36.0-46.0); HGB 16.4 g/dL (11.2-15.7); Immature Grans % 0.2 %; MCH 29.9 pg (27.0-33.0); MCHC 33.8 % (32.0-36.0); MCV 89 fL (80-95); MPV 10.4 fL (8.0-11.0); Platelet Count 235 10^3/uL (130-400); RBC 5.48 10^6/uL (3.93-5.22); RDW 14.5 % (11.7-14.6); RDW-SD 46.8 fL; WBC 8.69 10^3/uL (4.4-10.8)
[2025-04-25 20:35] LABS: ALT 29 U/L (14-59); AST 19 U/L (15-37); Albumin 3.6 g/dL (3.4-5.0); Alkaline Phosphatase 144 U/L (46-116); Amylase 22 U/L (25-115); Anion Gap 8.4 mmol/L (3-11); BUN 16 mg/dL (7-18); Bilirubin, Total 1.0 mg/dL (0.2-1.0); CO2 33.6 mmol/L (21.0-32.0); Calcium 9.2 mg/dL (8.5-10.1); Chloride 100 mmol/L (98-107); Glucose 96 mg/dL (74-106); Lipase 18 U/L (<78); Potassium 3.3 mmol/L (3.5-5.1); Sodium 142 mmol/L (136-145); Total Protein 7.3 g/dL (6.4-8.2)
[2025-04-25 20:51] LABS: Estimated GFR 56.81 (mL/min/1.73m2)
== END 2025-04-25 13:27 | disposition home or self-care (01) ==
LOC: NCHCN 13:26
PROVIDERS: Visit Provider Family Medicine
DX: R19.7 Diarrhea, unspecified (principal)
CPT/HCPCS: 80053; 83690; 82150; 85025